=== PATIENT | male | born 1975 | race Caucasian/White ===

== ENCOUNTER 2021-05-26 01:16 | Observation (INO) | payer BC, SELFPAY ==
[2021-05-26] VITALS (28 sets, daily range): BP systolic 95–166; BP diastolic 68–109; PULSE 71–97; RESP 10–31; TEMP 36.3–37.2; O2SAT 91–99; BMI 33.9; BMI 34.8
--- NOTE | 2021-05-26 | PATH_ITS ---
[facility] Accession Number: [id number] . 01 Material submitted: . gallbladder - GALLBLADDER . 02 Diagnosis: Gallbladder, Cholecystectomy: Chronic cholecystitis with cholelithiasis with cholesterolosis. Negative for dysplasia and malignancy. [facility] 05/30/2021 1210 Local . 02 Electronically signed: . Liz Padilla MD, Pathologist NPI- [id number] . 01 Gross description: . The specimen is received in formalin, labeled gallbladder, and consists of a 9.5 x 4.0 x 3.5 cm intact gallbladder with a 0.2 cm in diameter cystic duct. The serosa is rock-pink and smooth. Opening reveals green viscous bile with a 1.5 x 1.5 x 1.3 cm, rock-green, bosselated choleliths. The mucosa is rock-green and trabeculated with scattered yellow flecks. The wall thickness measures 0.2 cm. Lens Mounter sections are submitted, to include the en face cystic duct margin (blue), in cassette A1. ([id number]) /[facility] 05/30/2021 1522 Local . 02 Pathologist provided ICD-10: K80.60 . 02 CPT . 677995 Performed at: 01 [facility] Cytology [address], [place], [place] [id number] MD Joey Teran MD Phone: [phone] Performed at: 02 [facility] [address] [place], [place] [id number] MD Liz Padilla MD Phone: [phone]
--- NOTE | 2021-05-26 01:19 | ED_ITS ---
HPI - Abdominal Pain General Chief Complaint: Abdominal Pain Stated Complaint: abdominal pain Time Seen by Provider: 05/26/21 01:19 History of Present Illness HPI narrative: 45-year-old male nonsmoker with history of hypertension hyperlipidemia presents with a chief complaint of gradually worsening left upper quadrant pain the past few hours. He has had some nausea but denies any vom iting. He denies any change in bowel habits. He denies any dietary change. He states that the pain is intense and persistent but does come in some waves. He denies any obvious provocation or palliation. She denies any radiation. He states he has had a similar episode at least once before but that seemed to resolve with vomiting Related Data Home Medications Medication Instructions Recorded Confirmed amlodipine 10 mg tablet 20 mg PO DAILY 05/26/21 05/26/21 atorvastatin 20 mg tablet 20 mg PO DAILY 05/26/21 05/26/21 emtricitabine 100 mg-tenofovir tab 05/26/21 disoproxil fumarate 150 mg tablet (Truvada) lisinopril 5 mg tablet 5 mg PO DAILY 05/26/21 05/26/21 Allergies Allergy/AdvReac Type Severity Reaction Status Date / Time No Known Drug Allergies Allergy Verified 05/26/21 01:28 Review of Systems Review of Systems Narrative: GENERAL: Denies chills, fatigue, malaise, fever, sweats. HEENT: Denies sinus pain, ear pain, sore throat, difficulty swallowing, dizziness. RESPIRATORY: Denies dyspnea, cough, wheezing, hemoptysis, sputum. CARDIOVASCULAR: Denies chest pain, palpitations, orthopnea, edema, GASTROINTESTINAL: see HPI : Denies dysuria, frequency, incontinence, hematuria, urinary retention. MUSCULOSKELETAL: denies weakness, joint pain, or bony pain SKIN: Denies rash, skin lesions, or other NEUROLOGIC: Denies weakness, headache, numbness, change in speech, confusion, seizures, incoordination. PSYCHIATRIC: No concerning psychosocial issues. 12 point review of systems is negative except for those stated above Patient History Social History Smoking Status: Never smoker Exam Narrative Exam Narrative: GENERAL: [45] year old patient appears stated age. Well- developed patient, in mild distress. HEAD: Atraumatic. Normocephalic. EYES: Pupils equal round and reactive. Extraocular motions intact. No scleral ic terus. No injection or drainage. ENT: Nose without bleeding, purulent drainage. Throat without erythema, tonsillar hypertrophy or exudate. Airway patent. NECK: Trachea midline. Non tender CARDIOVASCULAR: Regular rate and rhythm without murmurs, gallops, or rubs. RESPIRATORY: Clear to auscultation. Breath sounds equal bilaterally. No wheezes, rales, or rhonchi. GASTROINTESTINAL: Abdomen soft,tender in LUQ, nondistended. Bowel sounds present EXTREMITIES: No edema or joint tenderness. BACK: Nontender without deformity or crepitance. No flank tenderness. NEURO: AOx3. SKIN: No rash or erythema of visible areas Initial Vital Signs Initial Vital Signs: Vital Signs Pulse Rate 89 05/26/21 01:23 Blood Pressure 166/109 H 05/26/21 01:23 Pulse Oximetry 96 05/26/21 01:23 Course Orders Ordered: ED Orders 05/26/21 01:28 EKG-12 Lead Routine 05/26/21 01:45 Complete Blood Count AUTO DIFF Stat Comprehensive Metabolic Panel Stat Lipase Stat 05/26/21 01:48 XR abdomen min 2V Stat 05/26/21 02:34 CT abdomen pelvis w con Stat 05/26/21 03:30 US abdomen limited Stat 05/26/21 03:34 COVID19 - ADMIT (CHILD & ADOLESCENT PSYCHIATRIST swab/PCR) Stat Amlodipine Besylate (Amlodipine 5 Mg Tablet) 20 mg PO DAILY [place] Hydromorphone HCl (Hydromorphone 0.5 Mg Inj) 0.5 mg IV Q2H PRN PRN Reason: Pain, Severe (7-10) Lactated Ringer's (Lactated Ringers) 1,000 mls @ 150 mls/hr IV CONT [place] Ondansetron HCl (Ondansetron 4 Mg/2 Ml Inj) 4 mg IV Q4HR PRN PRN Reason: Nausea And Vomiting Discontinued Medications Sodium Chloride (Normal Saline 0.9%) 1,000 mls @ 1,000 mls/hr IV BOLUS ONE Stop: 05/26/21 02:46 Last Infusion: 05/26/21 03:41 Dose: 0 mls/hr Documented by: Admin: 05/26/21 02:09 Dose: 1,000 mls/hr Documented by: DAVID Piperacillin Sod/Tazobactam (Sod 4.5 gm/ Sodium Chloride) 100 mls @ 200 mls/hr IV NOW ONE Stop: 05/26/21 04:53 Last Infusion: 05/26/21 05:35 Dose: 0 mls/hr Documented by: Admin: 05/26/21 05:09 Dose: 200 mls/hr Documented by: KAMILLA Ondansetron HCl (Ondansetron 4 Mg/2 Ml Inj) 4 mg IV NOW ONE Stop: 05/26/21 01:48 Last Admin: 05/26/21 02:09 Dose: 4 mg Documented by: DAVID Pantoprazole Sodium (Pantoprazole 40 Mg Vial) 40 mg IV NOW ONE Stop: 05/26/21 01:48 Last Admin: 05/26/21 02:09 Dose: 40 mg Documented by: DAVID Consultations Consultation #1: discussed with Dr. Cruz, happy to accept on his service. Admit to floor and will see him later this morning. NPO, fluids, pain control, anti nausea, and ABX (Zosyn) Vital Signs Vital signs: Vital Signs - 8 hr 05/26/21 01:23 05/26/21 01:28 05/26/21 01:30 Temperature 98.1 F Pulse Rate 89 84 78 Respiratory Rate 22 17 Blood Pressure 166/109 H 166/106 H Pulse Oximetry 96 97 97 05/26/21 01:41 05/26/21 02:01 05/26/21 02:02 Temperature Pulse Rate 76 82 81 Respiratory Rate 22 10 L Blood Pressure 158/94 H 161/95 H Pulse Oximetry 97 96 97 05/26/21 02:30 05/26/21 02:51 05/26/21 03:00 Temperature Pulse Rate 77 85 78 Respiratory Rate 18 18 24 Blood Pressure 138/91 H 143/92 H 135/82 Pulse Oximetry 96 97 96 05/26/21 03:30 05/26/21 04:00 05/26/21 04:30 Temperature Pulse Rate 87 83 71 Respiratory Rate 25 H 22 12 Blood Pressure 136/89 141/83 H Pulse Oximetry 96 97 96 MDM - Abdominal Pain Lab Data Result diagrams: 05/26/21 01:45 05/26/21 01:45 Labs: Lab Results 09/24/21 09/24/21 09/24/21 Range/Units 01:45 01:45 03:34 WBC 11.2 H (4.5-11.0) X10^3/uL RBC 5.36 (4.5-5.9) X10^6/uL Hgb 15.8 (13.5-17.5) g/dL Hct 46.6 (41-53) % MCV 87.0 (80-100) fL MCH 29.5 (26-34) PG MCHC 34.0 (30-36) % RDW 13.2 (11.6-14.8) % Plt Count 237 (150-400) X10^3/uL Neut % (Auto) 67.2 (50-75) % Lymph % (Auto) 24.2 L (25-40) % [place] % (Auto) 6.9 (3-14) % Eos % (Auto) 1.0 L (2-4) % Baso % (Auto) 0.7 (0-2) % Neut # (Auto) 7500 H (8095-4915) /uL Lymph # (Auto) 2700 (0991-4263) /uL [place] # (Auto) 800 (0-900) /uL Eos # (Auto) 100 (0-450) /uL Baso # (Auto) 100 (0-100) /uL Sodium 139 (137-145) mmol/L Potassium 3.6 (3.4-5.1) mmol/L Chloride 103 (98-107) mmol/L Carbon Dioxide 29 (22-32) mmol/L BUN 13 (9-20) mg/dL Creatinine 0.98 (0.66-1.25) mg/dL Estimated GFR > 60.0 (>60) mL/min BUN/Creatinine Ratio 13.3 (6-22) Glucose 159 H (70-100) mg/dL Calcium 9.0 (8.4-10.2) mg/dL Total Bilirubin 0.6 (0.2-1.3) mg/dL AST 29 (17-59) IU/L ALT 30 (<50) IU/L Alkaline Phosphatase 159 H (38-126) U/L Total Protein 7.5 (6.3-8.2) g/dL Albumin 4.4 (3.5-5.0) g/dL Globulin 3.1 (1.7-4.1) g/dL Albumin/Globulin Ratio 1.4 (1.0-2.8) Lipase 110 (23-300) U/L SARS-CoV-2 (PCR) Negative (Negative) Point of care testing: Urine Dip Bedside Urine Glucose Negative Bedside Urine Bilirubin - Negative Bedside Urine Ketone - Negative Urine Specific [place] 1.015 Bedside Urine Occult Blood - Negative Bedside Urine pH 7.5 Bedside Urine Protein - Negative Bedside Urine Urobilinogen - Negative Bedside Urine Nitrite - Negative Bedside Urine Leukocytes - Negative Esterase Imaging Data CT scan - abdomen/pelvis: Radiologist's Impression: Gallbladder neck stone with question pericholecystic fat stranding ECG Data Interpretation: Stone in the neck, gallbladder thickening, pericholecystic fluid, concerns for early cholecystitis Discharge Plan Departure Patient Disposition: Admitted as Observation Clinical Impression: Acute cholecystitis Admit Date/Time: 05/26/21 04:51 Admit Provider: Ezra Cruz
--- NOTE | 2021-05-26 01:48 | DI.RAD.S_ITS ---
PROCEDURE: XR ABDOMEN MIN 2V INDICATIONS: abdominal pain and nausea TECHNIQUE: 2 views of the abdomen were acquired. COMPARISON: None. FINDINGS: Surgical changes and devices: None. Bowel: No pneumoperitoneum. The bowel gas pattern is normal. Small amount of stool is seen in the colon. Soft tissues: No masses; visualized solid organ contours appear normal in size. No suspicious abdominal calcifications. Bones: No suspicious bony abnormalities. IMPRESSION: Normal bowel gas pattern. No pneumoperitoneum. Dictated by: Adama Jackman M.D. on 05/26/2021 at 2:03 Approved by: Adama Jackman M.D. on 05/26/2021 at 2:04
[2021-05-26 02:00] LABS: Alanine Aminotransferase 30 IU/L (<50); Albumin 4.4 g/dL (3.5-5.0); Albumin Globulin Ratio 1.4 (1.0-2.8); Alkaline Phosphatase 159 U/L (38-126); Aspartate Aminotransferase 29 IU/L (17-59); BUN Creatinine Ratio 13.3 (6-22); Bilirubin Total 0.6 mg/dL (0.2-1.3); Blood Urea Nitrogen 13 mg/dL (9-20); Carbon Dioxide 29 mmol/L (22-32); Chloride 103 mmol/L (98-107); Estimated Glomerular Filt Rate > 60.0 mL/min (>60); Globulin 3.1 g/dL (1.7-4.1); Glucose 159 mg/dL (70-100); HEMOLYSIS < 15 (0-50); Lipase 110 U/L (23-300); Potassium 3.6 mmol/L (3.4-5.1); Sodium 139 mmol/L (137-145); Total Protein 7.5 g/dL (6.3-8.2)
[2021-05-26 02:03] LABS: Add Manual Diff / Slide Review NO; Basophils Absolute Auto 100 /uL (0-100); Basophils Percent Auto 0.7 % (0-2); Eosinophils Absolute Auto 100 /uL (0-450); Hematocrit 46.6 % (41-53); Hemoglobin 15.8 g/dL (13.5-17.5); Lymphocytes Absolute Auto 2700 /uL (1100-4500); Lymphocytes Percent Auto 24.2 % (25-40); Mean Corpuscular Hemoglobin 29.5 PG (26-34); Monocytes Absolute Auto 800 /uL (0-900); Monocytes Percent Auto 6.9 % (3-14); Neutrophils Absolute Auto 7500 /uL (1500-7000); Neutrophils Percent Auto 67.2 % (50-75); Platelet Count 237 X10^3/uL (150-400); Red Blood Cell Count 5.36 X10^6/uL (4.5-5.9); Red Cell Distribution Width 13.2 % (11.6-14.8); White Blood Cell Count 11.2 X10^3/uL (4.5-11.0)
[2021-05-26] MEDS: PANTOPRAZOLE 40 MG VIAL IV (02:09)
[2021-05-26] MEDS: SODIUM CHLORIDE 0.9% 1,000 ML 1000 ML IV (02:09)
[2021-05-26] MEDS: ONDANSETRON 4 MG/2 ML INJ IV (02:09)
--- NOTE | 2021-05-26 02:34 | DI.CT.S_ITS ---
PROCEDURE: CT ABDOMEN PELVIS W CON INDICATIONS: severe abdominal pain TECHNIQUE: After the administration of intravenous contrast, axial sections acquired from the lung bases to the pubic symphysis. Coronal and sagittal reformats were performed. For radiation dose reduction, the following was used: automated exposure control, adjustment of mA and/or kV according to patient size. COMPARISON: [facility], CR, XR ABDOMEN MIN 2V, 05/26/2021, 1:43. [facility], US, US ABDOMEN LIMITED, 05/26/2021, 4:30. FINDINGS: Image quality: Excellent. Lung bases: Unremarkable. Heart: No significant findings. ABDOMEN: Liver: Unremarkable. Gallbladder: There is a gallstone in the gallbladder neck. Biliary ducts: Unremarkable. Pancreas: Unremarkable. Spleen: Unremarkable. Adrenal Glands: Unremarkable. Kidneys and Ureters: Unremarkable. Stomach and Bowel: Stomach is distended with an air-fluid level. Fluid filled small bowel loops demonstrate normal caliber. There is abundant colonic gas. Colon is normal in caliber. Normal appendix. Peritoneum: No abnormal intraperitoneal fluid. No free air. Ventral Wall: No hernias. Abdominal Nodes: No retroperitoneal or mesenteric adenopathy by size criteria. Vessels: Aorta and inferior vena cava are normal in size. PELVIS: Pelvic Organs: Unremarkable. Bladder: Unremarkable. Pelvic Nodes: No enlarged lymph nodes. Miscellaneous: Small fat containing inguinal hernias are seen. Bones: Unremarkable. IMPRESSION: 1. Cholelithiasis. There is a gallstone in the gallbladder neck. No CT findings to suggest acute cholecystitis. 2. Stomach is distended with an air-fluid level. Small intestine is filled with fluid but demonstrate normal caliber. The finding is nonspecific and could be secondary to gastroenteritis. Recommend clinical correlation. No significant discrepancy with the freight sorter radiology preliminary report. Dictated by: Maria Dolores Caal M.D. on 05/26/2021 at 7:57 Approved by: Maria Dolores Caal M.D. on 05/26/2021 at 8:17
--- NOTE | 2021-05-26 03:30 | DI.US.S_ITS ---
PROCEDURE: US ABDOMEN LIMITED INDICATIONS: abdominal pain, GB stone on CT TECHNIQUE: Real-time focused scanning was performed of the abdomen, with image documentation. COMPARISON: [facility], CT, CT ABDOMEN PELVIS W CON, 05/26/2021, 2:43. FINDINGS: There is a nonmobile gallstone in the gallbladder neck measuring 1.1 x 0.7 cm. Gallbladder wall is mildly thickened measuring 3.6 mm. No pericholecystic fluid collection or sonographic [place] sign. Visualized liver is normal in size and echotexture. There is hepatopetal flow of the main portal vein. Common bile duct and pancreas are not visualized due to overlying bowel gas. No free fluid. IMPRESSION: Cholelithiasis with a nonmobile gallstone in the gallbladder neck. There is mild gallbladder wall thickening suspicious for acute cholecystitis. HIDA scan may be helpful for further evaluation if clinically indicated. No significant discrepancy with the overnight houseperson radiology preliminary report. Dictated by: Maria Dolores Caal M.D. on 05/26/2021 at 8:47 Approved by: Maria Dolores Caal M.D. on 05/26/2021 at 8:49
[2021-05-26 04:39] LABS: COVID19 - ADMIT (NP swab/PCR) Negative (Negative)
[2021-05-26] MEDS: PIPERACILLIN/TAZO 4.5 GM in SODIUM CHLORIDE 0.9% 100 ML 200 ML IV (05:09)
[2021-05-26] MEDS: LACTATED RINGERS 1,000 ML 150 ML IV (06:03)
--- NOTE | 2021-05-26 06:57 | PC.NURSE ---
0525 admitted from ER, oriented to his room, Call light & bed controls. Denies any nausea & pain level 11/09 & able to tolerate it. Will cont. POc & monitor.
--- NOTE | 2021-05-26 08:51 | P.HP_ITS ---
History of Present Illness History of Present Illness Date Patient Seen: 05/26/21 Time Patient Seen: 07:30 Date of Onset of Symptoms: 05/25/21 Chief complaint: abdominal pain Narrative: Started having epigastric pain after dinner last night. Increased in severity and he presented to ED and was found to have cholecystitis. Patient History Comment: HTN, Hypercholesterolemia Family & Social History Social History: household members other Safety & Behavioral: Feels Safe in Current Yes Environment Been Physically Hurt or No Threatened By a Person Suicidal Ideation Description None Suicide Plan Description No Plan Tobacco & Substance use: Smoking Status Never smoker alcohol intake frequency holiday/special occasion Substance Use Type does not use Meds Home Medications and Allergies Home Medications Medication Instructions Recorded Confirmed Type amlodipine 10 mg tablet 20 mg PO DAILY 05/26/21 05/26/21 History atorvastatin 20 mg tablet 20 mg PO DAILY 05/26/21 05/26/21 History emtricitabine 100 mg-tenofovir 1 tab PO DAILY 05/26/21 05/26/21 History disoproxil fumarate 150 mg tablet (Truvada) lisinopril 5 mg tablet 5 mg PO DAILY 05/26/21 05/26/21 History Allergies Allergy/AdvReac Type Severity Reaction Status Date / Time No Known Drug Allergies Allergy Verified 05/26/21 01:28 Review of Systems Review of Systems ROS: Yes All systems reviewed with the patient and are negative except as otherwise documented Gastrointestinal Gastrointestinal: Reports abdominal pain, Reports bloating, Reports cramping and Reports nausea Exam Vital Signs (past 8 hours): - 05/26/21 01:23 05/26/21 01:28 05/26/21 01:30 Temperature 98.1 F Pulse Rate 89 84 78 Respiratory Rate 22 17 Blood Pressure 166/109 H 166/106 H Pulse Oximetry 96 97 97 05/26/21 01:41 05/26/21 02:01 05/26/21 02:02 Temperature Pulse Rate 76 82 81 Respiratory Rate 22 10 L Blood Pressure 158/94 H 161/95 H Pulse Oximetry 97 96 97 05/26/21 02:30 05/26/21 02:51 05/26/21 03:00 Temperature Pulse Rate 77 85 78 Respiratory Rate 18 18 24 Blood Pressure 138/91 H 143/92 H 135/82 Pulse Oximetry 96 97 96 05/26/21 03:30 05/26/21 04:00 05/26/21 04:30 Temperature Pulse Rate 87 83 71 Respiratory Rate 25 H 22 12 Blood Pressure 136/89 141/83 H Pulse Oximetry 96 97 96 05/26/21 05:00 05/26/21 06:03 Temperature 97.3 F L Pulse Rate 80 76 Respiratory Rate 31 H 16 Blood Pressure 137/84 142/81 H Pulse Oximetry 94 99 Oxygen Delivery Method Room Air Const General: cooperative, comfortable and well developed Nutritional Appearance: overweight Orientation: alert and awake HENMT Head: normal to inspection Eyes General: appearance normal, both eyes and all related structures Pupils: PERRL EOM: EOM intact bilaterally Neck Neck: full ROM Resp Effort & Inspection: normal respiratory effort Auscultation: clear to auscultation bilaterally Cardio Rate: regular rate Rhythm: regular rhythm GI Palpation: soft and tender (mild RUQ) Auscultation: normal bowel sounds Skin General: dry skin and warm Neuro General: patient alert, patient awake and patient oriented x3 Cognition: normal cognition Speech: speech normal Extrem General: normal to inspection and no pedal edema Psych Speech and Movement: speech and movement normal Affect: normal affect Attitude: cooperative Thought Process: normal Thought Content: normal Judgment: judgment good Objective Labs Result Diagrams: 05/26/21 01:45 05/26/21 01:45 Labs: Laboratory Results - last 24 hr 05/26/21 05/26/21 05/26/21 01:45 01:45 03:34 WBC 11.2 H RBC 5.36 Hgb 15.8 Hct 46.6 MCV 87.0 MCH 29.5 MCHC 34.0 RDW 13.2 Plt Count 237 Neut % (Auto) 67.2 Lymph % (Auto) 24.2 L [place] % (Auto) 6.9 Eos % (Auto) 1.0 L Baso % (Auto) 0.7 Neut # (Auto) 7500 H Lymph # (Auto) 2700 [place] # (Auto) 800 Eos # (Auto) 100 Baso # (Auto) 100 Sodium 139 Potassium 3.6 Chloride 103 Carbon Dioxide 29 BUN 13 Creatinine 0.98 Estimated GFR > 60.0 BUN/Creatinine Ratio 13.3 Glucose 159 H Calcium 9.0 Total Bilirubin 0.6 AST 29 ALT 30 Alkaline Phosphatase 159 H Total Protein 7.5 Albumin 4.4 Globulin 3.1 Albumin/Globulin Ratio 1.4 Lipase 110 SARS-CoV-2 (PCR) Negative Assessment & Plan Assessment & Plan narrative: Acute Cholecystitis Discussed with patient the options, surgery and its potential risks and complications. He stated he understood and wanted to proceed with surgery Time Spent With Patient Time with patient: 30 to 49 minutes with 50% spent counseling/coordinating care Critical Care time: I spent a total of [] minutes of critical care time on this patient's care today; this time is exclusive of procedural time. Quality VTE Deep Vein Thrombosis/Pulmonary Embolism Present on Admission: No
[2021-05-26] MEDS: LACTATED RINGERS 1,000 ML 42 ML IV (09:54)
[2021-05-26] MEDS: ACETAMINOPHEN 325 MG TABLET 975 MG PO (09:56)
[2021-05-26] MEDS: CEFAZOLIN 1 GM VIAL 2 GM IV (10:22)
[2021-05-26] MEDS: BUPIVACAINE 0.25% (PF) VIAL 30 ML INJ (10:48)
--- NOTE | 2021-05-26 10:52 | SUR.OPER ---
Supine on padded OR bed, head on pillow, safety belt at thigh, left arm padded and tucked at side. Right arm secured on padded arm board <90 degrees abduction. Legs uncrossed. Padded footboard in place. Tape over blanket to secure lower legs.
--- NOTE | 2021-05-26 11:03 | PC.NURSE ---
Addendum entered by Estefany Ratliff R.N. 05/26/21 14:51: Patient stood at bedside to void. Denies dizziness, lightheadedness or SOB. Voiding without complications. D51/2NS infusing at 100cc/hr per order. Patient drinking water, denies wanting else at this time. VSS, 94-96% on RA. SCD's on. Call light in reach, belongings in reach. Patient denies further needs at this time. Addendum entered by Estefany Ratliff R.N. 05/26/21 12:57: Patient returned from Sx A/O x 3, 96% on RA, CPAP bedside. Continuous pulse ox on. Abdominal dsg x 3, CDI. Patient denies pain. Tolerating water. VSS, noted low BP, patient denies dizziness, lightheadedness, chest pain or SOB. LR @120cc/hr per order in L FA PIV, SCD's on bilaterally. Patient denies nausea at this time. Bed alarm on. Call light in reach, patient denies further needs at this time. Will continue to monitor. Original Note: Patient prepared for surgery this AM, Dr. Cruz in to speak with patient, consent signed. Patient A/O x 3, voiding without complication, endorsed abdominal pain 11/09, LR infusing at 150cc/hr, patient remains NPO. Denied further needs. Surgery transferred patient via bed. Patients personal CPAP transferred down to OR with patient, cellphone and other belongings remain bedside.
--- NOTE | 2021-05-26 11:21 | CM.DANOTE ---
Patient is a 45 yo male who was admitted on 05/26/21 today for Abd Pain. Pt has BCBS OUT STATE REG for insurance and his PCP is not listed as PCP is in [place]. EMR was reviewed. Per Surgeon, pt with possible early cholecystitis and stone in the gall neck. Pt to have Lap Brittney today and if remains stable could likely d/c tomorrow morning. SW met bedside with pt and explained role and he confirms that he lives in [place] with his and is active and independent at baseline and drives and works and denies any hx of HH or SNF. No formal DPOA pwk completed but informally would be his spouse Eleazar. 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 Pt states he has a moving company already set up in a couple weeks to move them from [place] up here to [place] to live with his new job starting soon and he will then need to switch PCP and providers but for now his PCP is still established at home in [place]. Pt states his boss already brought in his bipap and they are staying at the [facility] and boss extended pt's stay at the [place] [facility] for a few days in case the Lap Brittney is complicated. Otherwise pt's boss and coworkers plan to provide transport for pt if discharged tomorrow. Pt does not anticipate any needs at d/c. Plan: SW to follow closely after Lap Brittney today towards confirming possible d/c tomorrow morning for his 1600 flight back to [place] and any further identified discharge needs. DANIEL Tamayo Discharge Planning/Care Management Advanced directive, confirm from FAMILY Start: 05/26/21 05:53 Freq: Q24H Status: Active Protocol: Document 05/26/21 05:53 MP (Rec: 05/26/21 07:25 MP [id number]) Advance Directive, confirm on record Time 05:53 Person contacted patient. Copy received No Copy received No Advanced directive available on record No CM Discharge Assessment Start: 05/26/21 11:19 Freq: Status: Active Protocol: Document 05/26/21 11:19 BF (Rec: 05/26/21 11:21 BF [id number]) Discharge Planning Assessment Assigned Recording Studio Set Up Worker DANIEL Salazar DPOA/Assigned Designee Name informally spouse Eleazar Contact Information [phone] Advance Directives? No Advance Directives on File No History Provided By Patient,Medical Record Has Patient been admitted in last 30 No days? Prior Living Arrangements House Household Members spouse,other Type of transporation used prior to Drives own vehicle admit Independent with ADL's Yes Is patient alert and oriented? Yes Barriers to Discharge No Discharge Plan Home Transportation Arrangement Boss and coworkers plan to provide transport at d/c Referrals Initiated None needed Additional Comment Pending Herminia darden Whiteboard Updated in Patient Room with Yes name and ext. # of Recording Studio Set Up Worker Review Status In Process Please Provide Date Initial DC 05/26/21 Assessment Was Performed Next Review Type Continued Stay Review
[2021-05-26] MEDS: LACTATED RINGERS 1,000 ML 120 ML IV (12:41)
--- NOTE | 2021-05-26 12:47 | PM.OP.1 ---
Operative Date/Time/Diagnoses Date of procedure: 05/26/21 Time of procedure: 10:30 Pre-op diagnosis: Acute Colecystitis Post-op diagnosis: same Procedure & Clinicians Same procedure as scheduled: Yes Indications: Laparoscopic Cholecystectomy Surgeon: Ezra Cruz Click Yes if Unassisted: Yes Anesthesia Type: General Operative Notes Findings: Acute Cholecystitis Closure Type: primary Specimen(s): other (Gallbladder) Estimated Blood Loss (mL): 20 Blood products transfused: none Tourniquet time (min): 0 Procedure in detail: Patient was brought to the operating room and placed on the table in the supine position. After an adequate general anesthetic a time out was performed. SCD's and preoperative antibiotics were administered. The abdomen was prepped and draped in sterile fashion. Incision was made at the umbilicus and dissection was carried down to the fascia which was divided under direct vision. O-Vicryl sutures were placed on either side and the Suzanne cannula place and secured. The abdomen was insuflated to 15mm of pressure and the video laparoscope inserted thru the Suzanne. The 10mm sub-xiphoid and the two 5mm right lateral ports placed under direct vision without complication. The fundus of the gallbaldder was grasped and retracted over the liver. The infundibulum was grasped and retracted laterally. The gallbladder was thickened and edematous. Using careful blunt and electrocautery dissection the edematous fatty areolar connective tissue was dissected free from the cystic duct and the cystic artery. The critical view of safety was isis obtained. The cystic duct was clipped at the gallbladder junction and twice more just proximally, the divided between the clips. The artery was clipped where it entered the gallbladder then twice more just proximally and divided between the clips. The gallbladder was then removed from the liver bed using the electrocautery. There was quite a bit of edema, and several small tears made in the capsule of the liver, these were easily controlled with the cautery. The liver bed was irrigated with warm saline and was hemostatic. The ruq irrigation was suctioned out. The camera was moved to the subxiphoid port and a grasper placed thru the umbilical port and the gallbladder removed. The ports were then removed and insuflation allowed to reverse. The previously placed vicryl sutures were tied closing the umbilical defect. All four wounds were then irrigated, hemostasis achieved, and injected with 1/4% marcaine. They were closed with subcuticular 4-0 monocryl, mastisol and steritstrips. Sterile dressings applied. The patient was then awakened and taken to the recovery room in stable condition having tolerated the procedure well. Complications: none Post-operative Condition: stable Disposition: PACU
[2021-05-26] MEDS: DEXTROSE 5%-0.45% NS 1,000 ML 100 ML IV (13:27)
--- NOTE | 2021-05-26 16:39 | PM.DS.1 ---
History of Present Illness History of Present Illness Date Patient Seen: 05/26/21 Time Patient Seen: 16:39 Date of Onset of Symptoms: 05/24/21 Chief complaint: abdominal pain Narrative: Started having epigastric pain after dinner last night. Increased in severity and he presented to ED and was found to have cholecystitis. Discharge Providers Provider Date of admission: 05/26/21 04:51 Discharge Date: 05/26/21 Consults: 05/26/21 09:50 Consult to Respiratory Therapy Evaluate & Treat Comment: Physician Instructions: Evaluate and treat 05/26/21 11:10 Consult to Physician Routine Comment: consult to primary care provider for followup Consulting Provider: Ezra Cruz Reason for consultation: Positive STOP BANG, management of obstructive sleep apnea Has provider been notified: Yes Discharge provider: Ezra Cruz MD Summary Hospital Course Discharge Diagnosis: Acute Cholecystitis Hospital Course: Admitted then underwent uncomplicated laparoscopic cholecystectomy Status at Discharge Cognitive/behavioral status at discharge: oriented Functional status at discharge: independent ambulation Overall status at discharge: patient is back to baseline Time Spent with Patient Time spent: Less than 30 minutes Exam Vital Signs (past 8 hours): - 05/26/21 09:43 05/26/21 11:44 05/26/21 11:49 Temperature 98 F 99 F Pulse Rate 89 80 82 Respiratory Rate 20 12 12 Blood Pressure 141/83 H 119/75 106/70 Pulse Oximetry 96 93 91 05/26/21 11:54 05/26/21 11:59 05/26/21 12:04 Temperature Pulse Rate 83 85 80 Respiratory Rate 22 17 12 Blood Pressure 95/68 117/79 122/78 Pulse Oximetry 92 93 97 05/26/21 12:09 05/26/21 12:34 05/26/21 13:02 Temperature 97.4 F L 97.4 F L Pulse Rate 82 77 74 Respiratory Rate 21 16 14 Blood Pressure 128/71 101/70 121/77 Pulse Oximetry 94 96 94 05/26/21 13:32 05/26/21 14:30 05/26/21 15:21 Temperature 97.3 F L 97.4 F L Pulse Rate 80 93 H Respiratory Rate 16 16 Blood Pressure 129/79 141/90 H Pulse Oximetry 96 96 94 05/26/21 16:10 Temperature 97.3 F L Pulse Rate 97 H Respiratory Rate 18 Blood Pressure 141/90 H Pulse Oximetry 93 Oxygen Delivery Method Room Air Oxygen Flow Rate 0 Const General: cooperative, healthy appearing and comfortable Nutritional Appearance: overweight HENMT Head: normal to inspection Eyes General: appearance normal, both eyes and all related structures Pupils: PERRL EOM: EOM intact bilaterally Neck Neck: normal visual inspection and full ROM Resp Effort & Inspection: normal respiratory effort Auscultation: clear to auscultation bilaterally Cardio Rate: regular rate Rhythm: regular rhythm GI Inspection: normal to inspection and obesity Palpation: soft Skin General: dry skin and warm Other: Wounds are C+D with sterile dressings Neuro General: patient alert and patient awake Cognition: normal cognition Speech: speech normal Extrem General: normal to inspection Psych Mental Status: mental status grossly normal Speech and Movement: speech and movement normal Affect: normal affect Attitude: cooperative Thought Process: normal Thought Content: normal Judgment: judgment good Objective Labs Result Diagrams: 05/26/21 01:45 05/26/21 01:45 Labs: Laboratory Results - last 24 hr 05/26/21 05/26/21 05/26/21 01:45 01:45 03:34 WBC 11.2 H RBC 5.36 Hgb 15.8 Hct 46.6 MCV 87.0 MCH 29.5 MCHC 34.0 RDW 13.2 Plt Count 237 Neut % (Auto) 67.2 Lymph % (Auto) 24.2 L Hill % (Auto) 6.9 Eos % (Auto) 1.0 L Baso % (Auto) 0.7 Neut # (Auto) 7500 H Lymph # (Auto) 2700 Hill # (Auto) 800 Eos # (Auto) 100 Baso # (Auto) 100 Sodium 139 Potassium 3.6 Chloride 103 Carbon Dioxide 29 BUN 13 Creatinine 0.98 Estimated GFR > 60.0 BUN/Creatinine Ratio 13.3 Glucose 159 H Calcium 9.0 Total Bilirubin 0.6 AST 29 ALT 30 Alkaline Phosphatase 159 H Total Protein 7.5 Albumin 4.4 Globulin 3.1 Albumin/Globulin Ratio 1.4 Lipase 110 SARS-CoV-2 (PCR) Negative [facility] Social History household members: spouse and other Smoking Status: Never smoker Discharge Assessment & Plan Assessment and Plan Assessment: S/P Laparoscopic Cholecystectomy for Acute Cholecystitis Plan of Treatment: Doing well D/C Home Discharge Plan Discharge Plan Patient Disposition: Home Discharge orders & Medications Prescriptions: Continued atorvastatin 20 mg Tablet 20 mg PO DAILY RF: 0 amlodipine 10 mg Tablet 20 mg PO DAILY RF: 0 lisinopril 5 mg Tablet 5 mg PO DAILY RF: 0 emtricitabine-tenofovir (TDF) [Truvada] 100-150 mg Tablet 1 tab PO DAILY RF: 0 Follow up/Referrals: Ezra Cruz MD [Physician] - 2 Weeks (F/U with doctor available) Diet/Activity/Treatments Diet: Diet as Tolerated and Low-cholesterol Diet comment: avoid fatty greasy foods for a while Activity: as traci Skin/Wound/Dressing Care Report to your healthcare provider any signs of infection, such as:: chills, fever, increased pain, unusual drainage and unusual redness Dressing: december remove Saturday Visit Report/Discharge Packet Stand Alone Forms: Surgery Discharge Discharge Data Attending Provider: Ezra Cruz Quality VTE Deep Vein Thrombosis/Pulmonary Embolism Present on Admission: No
--- NOTE | 2021-05-26 17:09 | PC.NURSE ---
Patient discharged in stable condition at 17:10 transported via wheelchair to friends vehicle. Discharch instructions reviewed with patient. Valuables returned to patient and all items removed from room.
--- NOTE | 2021-05-27 07:55 | CM.DPC ---
DCP Discharge Home Per Surgeon, pt tolerated uncomplicated Lap Brittney yesterday and was stable for d/c home last night after SW shift. Pt had plans for a flight back to [facility] and will return for permanent move to [place] for work in a few weeks. Plan: Patient discharged home last night with no further SW needs at this time. DANIEL Tamayo
== END 2021-05-26 17:09 | disposition home or self-care (01) ==
LOC: ED 04:38 → AC 04:54
PROVIDERS: Admitting Provider Surgery; Emergency Provider Emergency Medicine; Referring Provider Emergency Medicine; Visit Provider Surgery
PROC: 0FT44ZZ Resection of Gallbladder, Percutaneous Endoscopic Approach (ICD-10-PCS; CPT 47562; principal; 2021-05-26 10:00)
DX: K80.10 Calculus of gallbladder with chronic cholecystitis without obstruction; I10 Essential (primary) hypertension; E78.5 Hyperlipidemia, unspecified; E66.9 Obesity, unspecified; G47.33 Obstructive sleep apnea (adult) (pediatric); Z68.34 Body mass index [BMI] 34.0-34.9, adult
CPT/HCPCS: 47562; 36415; 74019; 74177; 76705; 80053; 81003; 83690; 85025; 87635; 93005; 93010; 99219; 99285; C9803; G0378; C9113; J0330; J0690; J1100; J1885; J2250; J2405; J2543; J2704; J3010; Q9967